=== PATIENT | male | born 1965 | race Caucasian/White ===

== ENCOUNTER 2020-04-17 15:43 | Emergency (ER) | payer SELFPAY ==
[2020-04-17 15:51] VITALS: BP 154/95; PULSE 107; RESP 18; TEMP 36.4; O2SAT 96
--- NOTE | 2020-04-17 16:37 | W.ED.GENAD ---
Discharge Plan Disposition Patient Disposition: HOME Condition: Good Discharge Details Chief Complaint: AnimalBite Clinical Impression: Dog bite Primary Care Provider: Lorena,Local ED Provider: Josefina Fink Home Meds and New Rx's Prescriptions: New amoxicillin-pot clavulanate [Augmentin] 875-125 mg tablet 1 tab PO BID Qty: 13 RF: 0 Continued atorvastatin 40 mg Tablet 40 mg PO DAILY RF: 0 Discharge Instructions Instructions: Animal Bite (ED) Additional Instructions: Please keep wound clean, dry, covered. Please monitor closely for signs of infection bleeding redness, warmth, drainage, increased pain, fever/chills. If you develop these or other new/worsening symptoms please seek care urgently once again. Please take the antibiotics as prescribed. Even if symptoms improve, please take the entire course. The bite has been reported, you should hear back soon regarding dog's vaccination status and continued plan. At this point, we do not have indication to warrant rabies prophylaxis. Tetanus was updated today. Continue with Tylenol and/or ibuprofen as needed for discomfort. Please follow-up with primary care beginning of next week for reevaluation. Discharge Data Discharge Date/Time-TO BE ENTERED AT DEPARTURE: 04/17/20 17:42 Medical Decision Making Patient is a pleasant 54-year-old gentleman presenting today with chief complaint dog bite. Patient reports that he resides in [place] but is here for work. 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 He denies other injuries from the incident. Patient is not up-to-date on his tetanus. Unclear on the dog's history though he states that he did have a collar and typically resides in the home. We will be able to track this dog down be able to have dog quarantined if needed. Patient has not had anything yet for his discomfort. Is not had difficulty with ambulation aside from discomfort. Dog bite has been reported by secretarial staff. At this time, we are unclear about the dogs immunization status. However, this is a dog that is able to be quarantined, typically resides in a home where they can be watched closely. Discussed this with the patient. Will hold off on rabies vaccination at this time. Will give tylenol, ibuprofen, tetanus and augmentin. Wounds were copiously irrigated and dressed by nursing staff. Fanta discussed sxs of infection and when to return. He has a PCP at [facility] and he will f/u with them at [facility] beginning of next week for wound check. Will continue him on augmentin. He was advised to stay in touch with dog spa manager, the local animal husbandry worker regarding rabies vaccine possibility. Hopefully, it will be known tomorrow morning if the dog is UTD on immunizations. All of his quesitnos and concerns were addressed, he is in agreement with this plan. HPI General Mode of arrival: ambulatory. Date/Time Provider Initiated Documentation: 04/17/20 15:55. Limitations to Documentation: no limitations. Information obtained by: patient and RN notes reviewed. History of Present Illness 54 year old M presents to the emergency department with the chief complaint of dog bite to posterior right thigh and left calf, described as moderate, with intensity rated at 7. Quality is described as aching, and is localized to the left, right and lower extremity. Patient reports no radiation. Patient started experiencing this minute(s) and it has been constant. No relieving factors improve symptom(s), No exacerbating factors reported . Patient notes no other symptoms.. Patient did receive the following treatments prior to arrival, none Related Data Home Medications Medication Instructions Recorded Confirmed amoxicillin-pot clavulanate 1 tab PO BID #13 tab 04/17/20 [Augmentin] atorvastatin 40 mg PO DAILY 04/17/20 04/17/20 Previous Rx's Medication Instructions Recorded amoxicillin-pot clavulanate 1 tab PO BID #13 tab 04/17/20 [Augmentin] Allergies Allergy/AdvReac Type Severity Reaction Status Date / Time No Known Allergies Allergy Unverified 04/17/20 15:55 General Stated Complaint: AnimalBite TITUS: 3 Review of Systems Constitutional Constitutional: Reports as per HPI, Denies chills, Denies fever(s) and Denies headache(s) ENT Ears, Nose, Mouth, and Throat: Denies headache(s) Cardiovascular Cardiovascular: Reports as per HPI Respiratory Respiratory: Reports as per HPI and Denies cough Musculoskeletal Musculoskeletal: Reports as per HPI and Denies abnormal gait Integumentary/Breasts Skin/Breast: Reports as per HPI Neurologic Neurologic: Reports as per HPI, Denies abnormal gait, Denies headache(s), Denies sensory deficit and Denies paresthesias [facility] Social History Smoking/Tobacco Use Status: Current-Occasional Tobacco Type: cigarettes Alcohol Intake: former Drug use: Never Substance use type: does not use Do you feel safe at home: Yes Do you feel safe in your relationship?: Yes Exam Const General: cooperative, healthy appearing, comfortable, no acute distress and well developed Nutritional Appearance: average body habitus and well nourished Orientation: alert and awake Resp Effort & Inspection: normal respiratory effort, able to speak in complete sentences and no respiratory distress Cardio Rate: regular rate Rhythm: regular rhythm Skin General skin exam: ecchymosis Trauma: puncture Neuro General: patient alert and patient awake Cognition: normal cognition Speech: speech normal Gait: normal gait Motor: muscle tone normal throughout Sensory Exam: no sensory deficits noted Extrem Upper/lower leg/hip images: 1. Curvilinear run of superficial puncture wounds. Surrounding ecchymosis and swelling. Full ROM of knee/hip. Able to flex against resistance without discomfort or difficulty. 2+ distal pulses. Sensation intact. No wounds requiring closure. No deep structures involved 2. This wound is more superificial than that at #1. Fainter puncture wound area with ecchymosis and no swelling at this time. Normal Mccarthy test. Sensation intact. 2+ distal pulses. Psych Appearance: grossly normal and well kempt Mental Status: mental status grossly normal Speech and Movement: speech and movement normal Course Vital Signs Vital signs: Vital Signs Temperature 36.4 C L 04/17/20 15:51 Pulse 107 H 04/17/20 15:51 Respiratory Rate 18 04/17/20 15:51 Blood Pressure 154/95 H 04/17/20 15:51 Pulse Oximetry 96 04/17/20 15:51 Temperature 36.4 C L 04/17/20 15:51 Pulse 107 H 04/17/20 15:51 Respiratory Rate 18 04/17/20 15:51 Respiratory Effort Non-Labored 04/17/20 15:57 Blood Pressure 154/95 H 04/17/20 15:51 Blood Pressure Position Sitting 04/17/20 15:51 Pulse Oximetry 96 04/17/20 15:51 Oxygen Delivery Method Room Air 04/17/20 15:51 Oxygen Flow Rate 0 04/17/20 15:51 Pain Level 7 04/17/20 15:51
[2020-04-17] MEDS: Acetaminophen 500 MG TAB 1000 MG PO (17:06)
[2020-04-17] MEDS: Ibuprofen 600 MG TAB PO (17:06)
[2020-04-17] MEDS: Amoxicillin 875/Clav. 125 TAB PO (17:07)
--- NOTE | 2020-04-17 17:27 | NUR.NOTE ---
Nursing Note: Animal report fax to Kunal @ [phone]
== END 2020-04-17 17:42 | disposition home or self-care (01) ==
PROVIDERS: Emergency Provider Physician Assistant
DX: S81.852A Open bite, left lower leg, initial encounter (principal); S71.151A Open bite, right thigh, initial encounter; W54.0XXA Bitten by dog, initial encounter
CPT/HCPCS: 90471; 99284; 99283